=== PATIENT | female | born 1940 | race Caucasian/White ===

== ENCOUNTER 2024-01-24 17:43 | Observation (INO) | payer OTHER, SELFPAY ==
--- NOTE | 2024-01-24 10:53 | ED.GENMED ---
ED Provider Triage
<Brenda Castro PA-C - Last Filed: 01/24/24 10:56>
-
Patient seen by provider in Triage?: Seen in Triage
Attestation: A medical screening examination has been initiated by a qualified medical provider. Based on the assessment performed at this time, it has been determined that an emergent medical condition may exist and the patient has been informed
that further medical evaluation and possible additional diagnostic testing may be needed.
HPI: 83yoF here with atraumatic R knee pain x 6 months that has been worsening. She was unable to get out of bed this morning due to the pain.
GENERAL: Alert , in no apparent distress
EYE: No visual abnormalities.
NECK: Trachea midline
ENT: No visible abnormalities.
LUNGS: No acute respiratory distress
NEUROLOGICAL: Alert and oriented
SKIN: Skin intact. No visible changes.
MUSCULOSKELETAL: Moving extremities normally
PSYCH: Normal and appropriate interaction.
This is a medical evaluation conducted in person to initiate diagnostic evaluation and provide initial therapeutics. Please see further documentation by the treating clinician.
X-rays of R knee ordered.
History of Present Illness
<Brenda Castro PA-C - Last Filed: 01/24/24 10:56>
General
Chief Complaint: Musculo-Skeletal Complaint
Time Seen by Provider: 01/24/24 11:55
<Spencer Samuels PA-C - Last Filed: 01/24/24 15:42>
General
Source: patient
Exam Limitations: none
History of Present Illness
History of Present Illness:
83-year-old female presents from home where she lives by herself with severe right knee and leg pain. This progress over the last 3 to 4 days. She states she cannot bear weight secondary to the pain. She has been using Tylenol [id number]
without relief. No fevers. No known injury. She is accompanied by her son
Past History
<Brenda Castro PA-C - Last Filed: 01/24/24 10:56>
Past History
ED Past Medical History: Hypercholesterolemia
ED Past Surgical History: Orthopedic
Social History
Tobacco: Smoker
Alcohol: None
Drug: None
Personal:
Living: alone
Employment: Retired
Family History
Family History: Other
Phy Exam
<Spencer Samuels PA-C - Last Filed: 01/24/24 15:42>
Physical Exam
Physical Exam:
General: Well-appearing female no acute respiratory distress
Musculoskeletal exam: Right knee mildly diffusely tender soft tissue swelling noted without obvious intra-articular effusion. No overlying erythema range of motion is good the right thigh is nontender
Skin is warm without rash
Heart: Regular rate and rhythm no murmurs
Lungs: Clear no wheeze
Course
<Brenda Castro PA-C - Last Filed: 01/24/24 10:56>
Orders/Labs/Results
Orders:
Orders
01/24/24 10:55
CR Knee- Right 4 Or More View* Urgent
Comment:
Reason For Exam: atraumatic pain
01/24/24 12:07
Knee Immobilizer Right-Treatme ONCE
Prednisone [Deltasone] 50 mg PO NOW STA
01/24/24 12:26
CR Femur - Right Min 2 Vw Urgent
Comment:
Reason For Exam: pain in leg
01/24/24 12:37
PT Consult [Pt Eval And Treat] Urgent
Activity Level: Ambulate
01/24/24 14:16
Case Management Consult ONCE
Case Management Consult: Discharge Planning
01/24/24 14:34
Basic Metabolic Panel Urgent
Complete Blood Count/With Diff Urgent
01/24/24 15:39
Occupational Therapy Consult [Ot Eval And Treat] Urgent
Abnormal Lab Results
01/24/24
14:34
Absolute Neuts (auto) 6.8 H 10^3/uL
(1.4-6.5)
Neutrophils % 79.5 H %
(42.2-75.2)
Lymphocytes % 16.4 L %
(20.5-51.1)
Carbon Dioxide 21 L mmol/L
(22-30)
BUN 19 H mg/dl
(7-17)
Glucose 148 H mg/dl
(70-99)
01/24/24 14:34
01/24/24 14:34
Vital Signs
Initial and Last Documented VS:
Initial Vital Signs
Temp Pulse Resp BP Pulse Ox
98.4 F 73 16 132/82 96
01/24/24 10:54 01/24/24 10:54 01/24/24 10:54 01/24/24 10:54 01/24/24 10:54
Last Documented Vital Signs
Temp Pulse Resp BP Pulse Ox
98.4 F 73 20 132/82 96
01/24/24 10:54 01/24/24 10:54 01/24/24 12:28 01/24/24 10:54 01/24/24 10:54
<Spencer Samuels PA-C - Last Filed: 01/24/24 15:42>
Orders/Labs/Results
Orders:
Orders
01/24/24 10:55
CR Knee- Right 4 Or More View* Urgent
Comment:
Reason For Exam: atraumatic pain
01/24/24 12:07
Knee Immobilizer Right-Treatme ONCE
Prednisone [Deltasone] 50 mg PO NOW STA
01/24/24 12:26
CR Femur - Right Min 2 Vw Urgent
Comment:
Reason For Exam: pain in leg
01/24/24 12:37
PT Consult [Pt Eval And Treat] Urgent
Activity Level: Ambulate
01/24/24 14:16
Case Management Consult ONCE
Case Management Consult: Discharge Planning
01/24/24 14:34
Basic Metabolic Panel Urgent
Complete Blood Count/With Diff Urgent
01/24/24 15:39
Occupational Therapy Consult [Ot Eval And Treat] Urgent
Abnormal Lab Results
01/24/24
14:34
Absolute Neuts (auto) 6.8 H 10^3/uL
(1.4-6.5)
Neutrophils % 79.5 H %
(42.2-75.2)
Lymphocytes % 16.4 L %
(20.5-51.1)
Carbon Dioxide 21 L mmol/L
(22-30)
BUN 19 H mg/dl
(7-17)
Glucose 148 H mg/dl
(70-99)
01/24/24 14:34
01/24/24 14:34
Vital Signs
Initial and Last Documented VS:
Initial Vital Signs
Temp Pulse Resp BP Pulse Ox
98.4 F 73 16 132/82 96
01/24/24 10:54 01/24/24 10:54 01/24/24 10:54 01/24/24 10:54 01/24/24 10:54
Last Documented Vital Signs
Temp Pulse Resp BP Pulse Ox
98.4 F 73 20 132/82 96
01/24/24 10:54 01/24/24 10:54 01/24/24 12:28 01/24/24 10:54 01/24/24 10:54
Markuslt;Spencer Samuels PA-C - Last Filed: 01/24/24 15:42>
MDM/Problems Addressed
Differential Diagnosis Includes:
Right knee and leg pain. No swelling of the leg to suggest DVT. No erythema to suggest septic arthritis. X-rays of the right knee show mild degenerative changes. Attempted to place patient in knee immobilizer and treat with prednisone. She was
unable to bear any weight on the right leg. Patient and family expressed concern about potential for going home.
<Spencer Samuels PA-C - Last Filed: 01/24/24 15:42>
*Critical Care Note
Total Time (30-74mins, 75-104mins- exclusive of procedures): Not Applicable
<Spencer Samuels PA-C - Last Filed: 01/24/24 15:42>
Update Note
Update Note:
Right knee and femur x-rays were negative. Evaluated by physical therapy. Patient unable to safely ambulate per their evaluation. They recommended SNF placement. Case management involved. They have beds but are waiting for authorization which
will not happen tonight. Will admit for further work with physical therapy and case management
ED Attending Note
<Brenda Castro PA-C - Last Filed: 01/24/24 10:56>
-
Portions of this chart may have been created with voice recognition software.� Occasional wrong word or��sound alike� substitutions may have occurred due to the inherent limitations of voice recognition software.
Discharge Plan
Departure
Patient Disposition: Admit
Date of Disposition: 01/24/24
Time of Disposition: 15:42
Admit to: Med/Surg
Presentation/result/management discussed w/ accepting MD/DO: Hospitalist
Discharge Problem:
Pain in right leg, Ambulatory dysfunction
Prescriptions:
No Action
atorvastatin 20 MG tablet
20 mg PO DAILY
cyanocobalamin (vitamin B-12) 1,000 MCG tablet
1,000 mcg PO DAILY
alum-mag hydroxide-simeth [Mag-Al Plus] 30 ML suspension
30 ml PO Q4HPRN PRN (Reason: INDIGESTION) 0RF
ascorbic acid (vitamin C) [Vitamin C] 1,000 mg Tablet
1,000 mg PO DAILY
sertraline 50 mg Tablet
75 mg PO DAILY
cholecalciferol (vitamin D3) 25 mcg (1,000 unit) Tablet
25 mcg PO DAILY
melatonin 10 mg Tablet
10 mg PO HS PRN (Reason: sleep)
amoxicillin-pot clavulanate 875-125 mg tablet
1 tab PO BID Qty: 4 0RF
Rx Instructions:
2 days
polyethylene glycol 3350 [HealthyLax] 17 gram Powder In Packet
17 g PO DAILY Qty: 1 0RF
nicotine 21 mg/24 hr Patch 24 Hour
21 mg transdermal DAILY Qty: 1 0RF
metoprolol succinate 25 mg Tablet Extended Release 24 Hr
25 mg PO BID Qty: 30 0RF
Rx Instructions:
New medication for atrial tachycardia
Referrals:
Diaz Linda MD [Family Provider] -
Interventions
Interventions:
*Risk Screen - Suicide Last Done: 01/24/24 10:54
*General Assessment Last Done: 01/24/24 10:54
*Neglect/Abuse Screening Last Done: 01/24/24 10:54
*ED COVID-19 Vaccine History Last Done: 01/24/24 11:39
ED-Musculoskeletal Assessment Last Done: 01/24/24 11:39
Discharge Date and Time
Print Language: DIVEHI
[2024-01-24 10:54] VITALS: BP 132/82
[2024-01-24] MEDS: DELTASONE 50 MG PO (12:11)
[2024-01-24 14:42] LABS: % Basophils 0.5 % (0-2); % Eosinophils 0.6 % (0-6); % Immature Granulocytes 0.5 % (0-0.5); % Lymphocytes 16.4 % (20.5-51.1); % Monocytes 2.5 % (1.7-9.3); % Neutrophils 79.5 % (42.2-75.2); Absolute Eosinophils 0.1 10^3/uL (0-0.7); Absolute Lymphocytes 1.4 10^3/uL (1.2-3.4); Absolute Monocytes 0.2 10^3/uL (0.1-0.6); Absolute Neutrophils 6.8 10^3/uL (1.4-6.5); Hematocrit 44.1 % (37.0-47.0); Hemoglobin 14.6 g/dL (12.0-16.0); Mean Corp Hgb Conc. 33.1 g/dL (33.0-37.0); Mean Corpuscular Hgb 30.9 pg (27.0-31.0); Mean Corpuscular Volume 93.2 fL (81.0-99.0); Mean Platelet Volume 9.2 fL (7.4-10.4); Nucleated Red Blood Cells % 0 %; Platelet Count 210 10^3/uL (130-400); Red Blood Cell Count 4.73 10^6/uL (4.20-5.40); Red Cell Dist. Width 13.3 % (11.5-14.5); White Blood Cell Count 8.6 10^3/uL (4.8-10.8)
[2024-01-24 15:00] LABS: Blood Urea Nitrogen 19 mg/dl (7-17); Calcium 9.8 mg/dl (8.4-10.2); Carbon Dioxide 21 mmol/L (22-30); Chloride 104 mmol/L (98-107); Glucose 148 mg/dl (70-99); Sodium 140 mmol/L (135-145); eGFR > 60.00
--- NOTE | 2024-01-24 15:49 | CM ---
ED CM consulted for SNF placement
Meeting with pt and son/ Ty
Pt resides alone in a split level house 5+1+1 to enter home
5 steps up to kitchen and sleeping area
Pt notes independence with WW throughout home
She showers independently but under supervision due to falls risks
Notes no current VN and denies financial insecurities
SNF recommended by PT
Referral to [facility]
Will need [employer] auth
Requested OT order for auth purposes
Discharge Disposition- [facility] pending auth
[2024-01-24 16:26] VITALS: BP 156/84; PULSE 63; O2SAT 97
[2024-01-24 16:29] VITALS: BP 146/79
--- NOTE | 2024-01-24 16:42 | HPS.HSE ---
Family Physician
-
Family Physician: Diaz Linda MD
Chief Complaint
-
Right knee pain inability to ambulate
History of Present Illness
83-year-old female from home, where she lives alone complaining of atraumatic right knee pain x 6 months that is getting progressively worse she was unable to get out of bed this morning due to the pain. Her son is helping with past medical history
due to patient's short-term memory impairment. She has been upstairs for the past 4 days in her bed close to her bathroom as she is unable to get down the steps. She reports she cannot bear weight due to the pain. She will report improvement of
pain with Tylenol every 6 hours, although she has not been able to get out of bed and walk according to her son. She has short-term memory impairment, but does not recall she lives in a split-level home with bedrooms upstairs, does not recall she
has been upstairs for the last 4 days. She has some generalized swelling with mild joint effusion to the right and left knee. Right knee is greater than left. There is no erythema or warmth. No history of gout. Her x-ray today of the right knee
shows osteopenia no acute abnormalities She denies fever, chills, joint effusion, sore throat, headache, chest pain, palpitations, shortness breath, cough, abdominal pain, nausea, vomiting, diarrhea, urinary symptoms
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
inversions
Medical History
Past Medical History
Past Medical History: Reports Other
Additional Past Medical History:
Dementia with short-term memory impairment started approximately 2020 per son Ty Montes
Hyperlipidemia
Anxiety
Paroxysmal atrial tachycardia
Recurrent falls
Hx of rhabdomyolysis 2020
Bilateral hip fractures with bilateral hip replacements by [facility]
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
Past Surgical History: Reports Other
Additional Past Surgical History:
Bilateral hip replacement [facility] Dr. Sanderson
Social History
Tobacco: Smoker (1 ppd)
Alcohol: Other (Former daily gin and tonic or scotch and water from age [age])
Drug: None
Personal: Single
Living: Alone (Split-level home 5 steps up to bedrooms and bathroom)
Employment: Retired
Family History
Family History: Not pertinent
Allergies / Home Medications
Allergies reflects when Allergies were last updated in [employer].
Home Medications with original date entered in [employer]
Allergy/Medication List:
Allergies
Allergy/AdvReac Type Severity Reaction Status Date / Time
No Known Allergies Allergy Verified 01/24/24 10:54
Home Medications
ascorbic acid (vitamin C) 1,000 mg tablet (Vitamin C) 1,000 mg PO DAILY Supplement 02/27/23
cholecalciferol (vitamin D3) 25 mcg (1,000 unit) tablet 25 mcg PO DAILY Supplement 02/27/23
acetaminophen 500 mg tablet (Tylenol Extra Strength) 1,000 mg PO QID 01/24/24
atorvastatin 20 mg tablet (Lipitor) 20 mg PO QPM 01/24/24
metoprolol succinate 25 mg tablet,extended release 24 hr 25 mg PO DAILY 01/24/24
potassium chloride 20 mEq tablet,extended release 20 meq PO DAILY 01/24/24
therapeutic multivitamin 1 tab PO DAILY 01/24/24
Review of Systems
-
History Source: Patient and Family (Son Ty Montes, POA at bedside)
Constitutional: Denies Fever, Fatigue or Chills
EENT: Denies Sore Throat or Runny Nose
Respiratory: Denies Cough or Trouble Breathing
Cardiac: Denies Chest Pain, Diaphoresis, Palpitations or Syncope
Abdomen/GI: Denies Abdominal Pain, Nausea, Vomiting, Diarrhea, Constipated, Bloody Stools or Black Stools
: Denies Dysuria, Frequency, Flank Pain, Incontinence, Difficulty Voiding or Urgency
Musculoskeletal: Reports Joint Pain (Right knee pain, no surrounding erythema) and Joint Swelling (Mild effusion right and left knee); Denies Edema
Skin: Denies Itching or Rash
Neurological: Reports Weakness (Unable to bear weight on right knee secondary to pain per patient); Denies Dizzy or Headache
Endocrine: Reports No Symptoms
Hematologic/Lymphatic: Reports No Symptoms
Psych: Reports Calm
Physical Exam
Vital Signs
Vital Signs
Temp Pulse Resp BP Pulse Ox
98.4 F 64 18 146/79 98
01/24/24 10:54 01/24/24 16:29 01/24/24 16:29 01/24/24 16:29 01/24/24 16:29
Physical Exam
General: Comfortable and Conversant; No Fever or Chills
HEENT: NormoCephalic, Anicteric, Moist mucous membranes, PERRLA, [place] Conjunctivae, No Ptosis and Neck Nontender
Respiratory: Clear; No Wheezes, Rales or Rhonchi
Cardiac: S1/S2 and Regular Rhythm; No Murmur, Rub, Gallop or Peripheral Edema
Breast: Deferred by me
GI: Soft, Non Tender, Non Distended, Normal Bowel Sounds and No Hepatosplenomegaly
Rectal: Deferred by Provider
Genito-urinary: Deferred by me
Musculoskeletal: No Clubbing, No Cyanosis, Edema, Left Lower Extremity (Mild left knee chronic swelling with mild effusions history of osteopenia) and Edema, Right Lower Extremity (Swelling to right knee with mild effusions no surrounding erythema
or warmth, unable to stand due to pain at end of femur beginning of tib-fib x 4 days); No Edema, Left Upper Extremity or Edema, Right Upper Extremity
Skin: Warm and Dry; No Rash
Neuro: Awake, Alert, Oriented (To name, son, place but not that she lives in a two-story home unaware she has been upstairs for the past 4 days-history of short-term dementia), Cranial Nerves Intact and No Sensory Deficits; No Slurred Speech, Facial
Droop, Tremors or Sedated
Psych: Calm
Laboratory Results
-
01/24/24 14:34
01/24/24 14:34
Laboratory Results
Total Bilirubin Cancelled 01/24/24 14:34
AST Cancelled 01/24/24 14:34
ALT Cancelled 01/24/24 14:34
Alkaline Phosphatase Cancelled 01/24/24 14:34
Impression/Plan
-
Impression/plan:
Observation MedSurg
#Acute on chronic knee pain Atraumatic likely Arthritis vs Other inflammatory condition
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
Prednisone 50 mg given in ER-will hold further
-Consult PT/OT/case management for SNF rehab patient has been to [facility] last year
-Continue Tylenol 650 mg 4 times daily scheduled
-Continue vitamin D3 daily
-Motrin 600 mg 3 times daily scheduled(will give x 5 days) due to patient's dementia she is unable to advocate appropriate pain scale and pain in general
- add pepcid 20 mg bid gi protection while on NSAIDS
-Check ESR, CRP
-PT/OT/case management consult
#Hx bilateral hip replacements
-Were done by [facility]
#Dementia with short-term memory impairment per son Ty at bedside
-Patient oriented to name and son but not two-story home she lives in, recent events
#Hx recurrent falls 2020
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
#Active smoker
Cessation advised
#Paroxysmal atrial tachycardia
-Continue metoprolol succinate 25 mg daily
#Hyperlipidemia
-Continue Lipitor 20 mg every afternoon
#Anxiety hx
-No reported medication
DVT prophylaxis
Subcu heparin
DNR per patient's son Ty KATIE Montes
--- NOTE | 2024-01-24 16:49 | CM ---
Availity auth initiated.
Pended reference #[id number].
Clinicals uploaded via [employer].
Patient accepted at [facility] pending insurance authorization.
--- NOTE | 2024-01-24 17:42 | W.PN.UPDATE ---
Update Note
Progress Note Update
This is an addendum to the H&P written by Lauryn Logan on 01/24/2024. Patient seen and examined independently with [employer]
83-year-old female with past medical history of paroxysmal atrial tachycardia, recurrent falls, hyperlipidemia, anxiety, genu valgus of bilateral knees, dementia with short-term memory loss presenting with acute on chronic right knee pain with
inability to bear weight over the past 2 days. She has bilateral knee pain worse on the right side. On examination knees are swollen with trace effusions but without redness or warmth.
X-rays showed no acute abnormalities. She was given prednisone 50 mg in the emergency room. Examination not consistent with inflammatory arthritis or gout. Examination not consistent with ligament or meniscal injury although she is tender on the
lateral right side of the patella. Pain likely secondary to osteoarthritis. Start ibuprofen. Check ESR/CRP. PT/OT. Consider outpatient MRI if no further improvement.
[2024-01-24 17:55] VITALS: BMI 25.6
[2024-01-24 18:40] LABS: Erythrocyte Sed Rate 12 mm/hour (0-20)
--- NOTE | 2024-01-24 19:30 | PTCARENOTE ---
Patient arrived to unit via stretcher accompanied by ED PCT. Patient poor historian, without RLE immobilizer on at this time, and unable to provide staff with accurate information on ambulation status. Transferred from stretcher to bed without
difficulty - patient refuses to wear immobilizer, education provided at this time. Nursing assessment completed and as documented, bed alarmed for safety, instructed use of call mistry and within reach. Care ongoing.
[2024-01-24 19:57] VITALS: BMI 24.4
[2024-01-24] MEDS: PEPCID 20 MG PO (20:39)
[2024-01-24] MEDS: HEPARIN 5000 UNITS SC (20:40)
[2024-01-24] MEDS: MOTRIN 600 MG PO (20:40)
[2024-01-24 22:00] VITALS: BP 153/72
[2024-01-24 23:00] VITALS: BP 157/101
[2024-01-25 07:30] VITALS: BP 160/89
[2024-01-25 09:08] LABS: % Basophils 0.4 % (0-2); % Eosinophils 1.2 % (0-6); % Immature Granulocytes 0.2 % (0-0.5); % Lymphocytes 28.1 % (20.5-51.1); % Neutrophils 62.1 % (42.2-75.2); Absolute Eosinophils 0.1 10^3/uL (0-0.7); Absolute Lymphocytes 2.5 10^3/uL (1.2-3.4); Absolute Monocytes 0.7 10^3/uL (0.1-0.6); Absolute Neutrophils 5.5 10^3/uL (1.4-6.5); Hematocrit 39.4 % (37.0-47.0); Hemoglobin 13.2 g/dL (12.0-16.0); Mean Corp Hgb Conc. 33.5 g/dL (33.0-37.0); Mean Corpuscular Hgb 31.6 pg (27.0-31.0); Mean Corpuscular Volume 94.3 fL (81.0-99.0); Mean Platelet Volume 9.5 fL (7.4-10.4); Nucleated Red Blood Cells % 0 %; Platelet Count 199 10^3/uL (130-400); Red Blood Cell Count 4.18 10^6/uL (4.20-5.40); Red Cell Dist. Width 13.4 % (11.5-14.5); White Blood Cell Count 8.9 10^3/uL (4.8-10.8)
[2024-01-25] MEDS: TYLENOL 650 MG PO (09:53)
[2024-01-25] MEDS: VITAMIN D3 (cholecalciferol) 25 MCG PO (09:53)
[2024-01-25] MEDS: THERAGRAN 1 TABLET PO (09:54)
[2024-01-25] MEDS: TOPROL XL 25 MG PO (09:54)
[2024-01-25] MEDS: VITAMIN C 1000 MG PO (09:54)
[2024-01-25] MEDS: HEPARIN 5000 UNITS SC ×2 (09:57→20:47)
[2024-01-25] MEDS: MOTRIN PO (11:07)
[2024-01-25 11:23] LABS: Blood Urea Nitrogen 21 mg/dl (7-17); Calcium 9.3 mg/dl (8.4-10.2); Carbon Dioxide 28 mmol/L (22-30); Chloride 103 mmol/L (98-107); Estimated Creatinine Clearance 43 ml/min; Glucose 87 mg/dl (70-99); Potassium 3.9 mmol/L (3.5-5.1); Sodium 142 mmol/L (135-145); eGFR > 60.00
--- NOTE | 2024-01-25 11:43 | W.PN.HOSP.TC ---
Today's Communication/Plan
-
await placement
ice pack, tylenol
celebrex
Assessment / Plan
Assessment / Plan
General: Comfortable and Conversant; No Fever or Chills
HEENT: NormoCephalic, Anicteric, Moist mucous membranes, [place] Conjunctivae, No Ptosis and Neck Nontender
Respiratory: Clear; No Wheezes, Rales or Rhonchi
Cardiac: S1/S2 and Regular Rhythm; No Murmur, Rub, Gallop or Peripheral Edema
Breast: Deferred by me
GI: Soft, Non Tender, Non Distended, Normal Bowel Sounds and No Hepatosplenomegaly
Rectal: Deferred by Provider
Genito-urinary: Deferred by me
Musculoskeletal: No Clubbing, No Cyanosis, Edema, Left Lower Extremity (Mild left knee chronic swelling ) and Edema, Right Lower Extremity (Swelling to right knee with mild effusions no surrounding erythema or warmth, unable to stand due to pain at
end of femur beginning of tib-fib x 4 days); No Edema, Left Upper Extremity or Edema, Right Upper Extremity no edema
Skin: Warm and Dry; No Rash
Neuro: No Slurred Speech, Facial Droop, Tremors or Sedated
Psych: Calm
#Acute on chronic knee pain Atraumatic likely Arthritis vs Other inflammatory condition
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
Prednisone 50 mg given in ER-will hold further
-Consult PT/OT/case management for SNF rehab patient has been to [facility] last year
-Continue Tylenol 650 mg 4 times daily scheduled
-Continue vitamin D3 daily
-celebrex bid
-add pepcid 20 mg bid gi protection while on NSAIDS
-Check ESR, CRP normal.
-Xray R knee negative for fracture.
-Xray R hip Right hip replacement in satisfactory position with no evidence of fracture or loosening
-PT/OT/case management consult
#Hx bilateral hip replacements
-Were done by [facility]
-f/u OP
#Dementia with short-term memory impairment per son Ty at bedside
-Patient oriented to name and son but not two-story home she lives in, recent events
#Hx recurrent falls 2020
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
#Active smoker
Cessation advised
#Paroxysmal atrial tachycardia
-Continue metoprolol succinate 25 mg daily
#Hyperlipidemia
-Continue Lipitor 20 mg every afternoon
#Anxiety hx
-No reported medication
DVT prophylaxis
Subcu heparin
DNR per patient's son Ty Montes, POA
PT/OT-SNF. Await auth. CM aware.
Anticipated Discharge: Today
Subjective/Interval History
-
Date of Service: January 25, 2024
states of R knee pain with activity
Objective Data
-
Labs:
Laboratory Results
01/25/24
08:43
WBC 8.9
Hgb 13.2
Hct 39.4
Plt Count 199
Sodium 142
Potassium 3.9
Chloride 103
Carbon Dioxide 28
BUN 21 H
Creatinine 0.9
Glucose 87
Calcium 9.3
Vital Signs:
Vital Signs
Temp Pulse Resp BP Pulse Ox
97.6 F 60 16 160/89 99
01/25/24 07:30 01/25/24 09:54 01/25/24 07:30 01/25/24 07:30 01/25/24 07:30
I&O
01/24/24 01/25/24 01/26/24
06:59 06:59 06:59
Output Total 100 / 100
Balance -100 / -100
Data Reviewed
-
Total Time Spent with Patient (in minutes): 51
[2024-01-25 15:16] VITALS: BP 124/63
--- NOTE | 2024-01-25 15:17 | CM ---
[facility] [id number].
Call placed to [facility] to determine bed availability; they do have a bed available for admission pending final authorization.
PLAN: CM to continue to follow to coordinate transport to [facility] once SNF authorization has been approved.
[2024-01-25] MEDS: CELEBREX 100 MG PO (20:47)
[2024-01-25] MEDS: PEPCID 20 MG PO (20:47)
[2024-01-25 23:55] VITALS: BP 121/59
[2024-01-26 07:35] VITALS: BP 153/78
[2024-01-26 09:56] VITALS: BP 143/79; PULSE 65
[2024-01-26] MEDS: CELEBREX 100 MG PO ×2 (09:59→20:03)
[2024-01-26] MEDS: HEPARIN 5000 UNITS SC ×2 (09:59→20:03)
[2024-01-26] MEDS: VITAMIN C 1000 MG PO (10:00)
[2024-01-26] MEDS: TOPROL XL 25 MG PO (10:00)
[2024-01-26] MEDS: VITAMIN D3 (cholecalciferol) 25 MCG PO (10:00)
[2024-01-26] MEDS: THERAGRAN 1 TABLET PO (10:00)
--- NOTE | 2024-01-26 11:10 | W.PN.HOSP.TC ---
Today's Communication/Plan
-
pain control
Ice pack
PT/OT/oob as tolerated
Assessment / Plan
Assessment / Plan
General: Comfortable and Conversant; No Fever or Chills
HEENT: NormoCephalic, Anicteric, Moist mucous membranes, [place] Conjunctivae, No Ptosis and Neck Nontender
Respiratory: Clear; No Wheezes, Rales or Rhonchi
Cardiac: S1/S2 and Regular Rhythm; No Murmur, Rub, Gallop or Peripheral Edema
Breast: Deferred by me
GI: Soft, Non Tender, Non Distended, Normal Bowel Sounds and No Hepatosplenomegaly
Rectal: Deferred by Provider
Genito-urinary: Deferred by me
Musculoskeletal: No Clubbing, No Cyanosis, Edema, Left Lower Extremity (Mild left knee chronic swelling ) and Edema, Right Lower Extremity mild TTP. No swelling. No Edema, Left Upper Extremity or Edema, Right Upper Extremity no edema
Skin: Warm and Dry; No Rash
Neuro: No Slurred Speech, Facial Droop, Tremors or Sedated
Psych: Calm
#Acute on chronic knee pain Atraumatic likely Arthritis vs Other inflammatory condition
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
-Consult PT/OT/case management for SNF rehab patient has been to [facility] last year
-Continue Tylenol 650 mg 4 times daily scheduled
-Continue vitamin D3 daily
-celebrex bid
-add pepcid 20 mg bid gi protection while on NSAIDS
-Check ESR, CRP normal.
-Xray R knee negative for fracture.
-Xray R hip Right hip replacement in satisfactory position with no evidence of fracture or loosening
-PT/OT/case management consult
#Hx bilateral hip replacements
-Were done by [facility]
-f/u OP
#Dementia with short-term memory impairment per son Ty at bedside
-Patient oriented to name and son but not two-story home she lives in, recent events
#Hx recurrent falls 2020
#Hx rhabdomyolysis after a fall 2020
#Active smoker
Cessation advised
#Paroxysmal atrial tachycardia
-Continue metoprolol succinate 25 mg daily
#Hyperlipidemia
-Continue Lipitor 20 mg every afternoon
#Anxiety hx
-No reported medication
DVT prophylaxis
Subcu heparin
DNR
PT/OT-SNF. Await auth. CM aware.
Anticipated Discharge: Today
Subjective/Interval History
-
Date of Service: January 26, 2024
Intermittent R knee pain
tolerating diet
Objective Data
-
Vital Signs:
Vital Signs
Temp Pulse Resp BP Pulse Ox
98.3 F 54 18 153/78 93
01/26/24 07:35 01/26/24 10:00 01/26/24 07:35 01/26/24 10:00 01/26/24 09:42
I&O
01/25/24 01/26/24 01/27/24
06:59 06:59 06:59
Intake Total 840 / 840
Output Total 350 / 350
Balance 490 / 490
[2024-01-26 15:24] VITALS: BP 138/81
--- NOTE | 2024-01-26 16:19 | PTCARENOTE ---
Pt AAO to self/place, occ forgetful to date. Re-orients easily; pt pleasant and cooperative. GOLDEN; OOB to chair/BSC with assistance/walker, james well. Pt c/o Rt knee discomfort with OOB activity; refuses offers of pain meds/prn ice pack; on
Celebrex PO. VSS. On room air- pulse ox 97%, no SOB noted. Abd large, soft, james PO well. Incont urine; occ voids on BSC. Resting in bed at present. Will continue to monitor.
--- NOTE | 2024-01-26 16:27 | CM ---
LORETTA continues to seek authorization approval from [facility] which was submitted 01/26/2024. LORETTA sent an email and voicemail to the [employer] reviewer, however no response received.
CM to continue follow up regarding transfer to [facility] at discharge.
--- NOTE | 2024-01-26 16:34 | CM ---
[facility] skilled auth pending.
Left VM with La Nena Castellanos contact at [facility],
Sent excalation email to [facility] team.
Await skilled rehab determination.
[2024-01-26] MEDS: PEPCID 20 MG PO (20:03)
[2024-01-26] MEDS: TYLENOL 650 MG PO (20:03)
[2024-01-26 23:29] VITALS: BP 140/82
[2024-01-27 07:30] VITALS: BP 168/84
--- NOTE | 2024-01-27 08:25 | CM ---
Left VM for Alma Rosa/Katarina mclain pending auth.
[2024-01-27] MEDS: HEPARIN 5000 UNITS SC (08:42)
[2024-01-27] MEDS: CELEBREX 100 MG PO (08:43)
[2024-01-27] MEDS: THERAGRAN 1 TABLET PO (08:43)
[2024-01-27] MEDS: VITAMIN D3 (cholecalciferol) 25 MCG PO (08:43)
[2024-01-27] MEDS: VITAMIN C 1000 MG PO (08:43)
[2024-01-27] MEDS: TOPROL XL 25 MG PO (08:44)
--- NOTE | 2024-01-27 09:41 | CM ---
Katarina authorization [id number] received this AM for transfer to [facility]. Level 1 approved 01/26-02/02/2024 with next review date 02/03/2024 to [phone].
Information relayed to [facility]. Call placed to Iris's son to make him aware of plan for transfer today. W/C van transport to be arranged and will notify son with time scheduled and he will call to make payment.
Plan: Transfer to [facility] today via w/c van transport.
[facility] report: [phone]
[facility] fax: [phone]
--- NOTE | 2024-01-27 11:40 | CM ---
Addendum entered by Judy Barrera 01/27/24 11:42:
IMM reviewed via telephone with Iris's son. Copy placed in chart and form emailed to Ty.
Original Note:
W/C van transport arranged for 1:30pm today. Ty, pt's son, notified of same and provided with phone number to call for payment.
[facility] Joiner notified of transport time.
Plan: Transfer to [facility] today via w/c van transport.
[facility] report: [phone]
[facility] fax: [phone]
--- NOTE | 2024-01-27 11:43 | W.PN.HOSP.TC ---
Today's Communication/Plan
-
Pain control
ice
OP ortho f/u
Assessment / Plan
Assessment / Plan
General: Comfortable and Conversant; No Fever or Chills
HEENT: NormoCephalic, Anicteric, Moist mucous membranes, [place] Conjunctivae, No Ptosis and Neck Nontender
Respiratory: Clear; No Wheezes, Rales or Rhonchi
Cardiac: S1/S2 and Regular Rhythm; No Murmur, Rub, Gallop or Peripheral Edema
Breast: Deferred by me
GI: Soft, Non Tender, Non Distended, Normal Bowel Sounds and No Hepatosplenomegaly
Rectal: Deferred by Provider
Genito-urinary: Deferred by me
Musculoskeletal: No Clubbing, No Cyanosis, Edema, Left Lower Extremity (Mild left knee chronic swelling ) and Edema, Right Lower Extremity mild point tenderness lateral patella. Able to flex/extend knee.
Skin: Warm and Dry; No Rash
Neuro: No Slurred Speech, Facial Droop, Tremors or Sedated
Psych: Calm
#Acute on chronic knee pain Atraumatic likely Arthritis
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
-Consult PT/OT/case management for SNF rehab
-Continue Tylenol 650 mg
-Continue vitamin D3 daily
-celebrex bid for few more days. Topical bengay.
-add pepcid 20 mg bid gi protection while on NSAIDS
-Check ESR, CRP normal.
-Xray R knee negative for fracture.
-Xray R hip Right hip replacement in satisfactory position with no evidence of fracture or loosening
-PT/OT/case management consult
-Recommends OP ortho f/u with [facility]
#Hx bilateral hip replacements
-Were done by [facility]
-f/u OP
#Dementia with short-term memory impairment per son Ty at bedside
-Patient oriented to name and son but not two-story home she lives in, recent events
#Hx recurrent falls 2020
#Hx rhabdomyolysis after a fall 2020
#Active smoker
Cessation advised
#Paroxysmal atrial tachycardia
-Continue metoprolol succinate 25 mg daily
#Hyperlipidemia
-Continue Lipitor 20 mg every afternoon
#Anxiety hx
-No reported medication
DVT prophylaxis-Subcu heparin
DNR
update son over the phone in details.
PT/OT-SNF. Await auth. CM aware.
More than 30 minutes spent in discharge including
Final examination of the patient
Summarizing hospital stay
Instructions for continuing care to all relevant caregivers
Preparation of discharge records, prescriptions, and referral forms
Total time spent (in minutes): 45
Anticipated Discharge: Today
Subjective/Interval History
-
Date of Service: January 27, 2024
resting in bed
tolerating diet
no resting knee pain
Objective Data
-
Vital Signs:
Vital Signs
Temp Pulse Resp BP Pulse Ox
98 F 53 18 168/84 97
01/27/24 07:30 01/27/24 07:30 01/27/24 07:30 01/27/24 07:30 01/27/24 07:30
I&O
01/26/24 01/27/24 01/28/24
06:59 06:59 06:59
Intake Total 840 / 840 720 / 720
Output Total 350 / 350 500 / 500
Balance 490 / 490 220 / 220
--- NOTE | 2024-01-27 13:57 | W.DCSUMMARY ---
Discharge Summary
Discharge Data
Date of Admission: 01/24/24
Date of Discharge: 01/27/24
-
Pending Results: No
Hospital Course
83 female past medical history of recurrent falls, active smoker, atrial tachycardia, hyperlipidemia, bilateral hip replacement presenting from home with complaint of severe right knee pain. Right knee pain has been ongoing for the past 6 months.
Patient underwent x-ray of the right hip without any acute pathology or fracture. X-ray of the right knee also without any fractures. Patient was able to extend and flex right knee without any difficulty. No severe significant swelling or
erythema was noted on the right knee. No Aviles's cyst noted on bilateral knees. Patient was started on Tylenol and NSAIDs. Ice pack was recommended. ESR and CRP were checked and found to be normal. Patient was recommended to follow-up
outpatient with [facility] orthopedic. Patient was eval by physical and Occupational Therapy who recommended SNF. Patient will be discharged to long term facility. Patient course was discussed with patient son over the phone in detail and
agreed discharge to rehab.
Discharge Plan
-
Patient Disposition: Jail/SNF
Discharge Diagnosis/Procedures: Acute on chronic knee pain Atraumatic likely Arthritis
Chronic genu valgus of the knees with bilateral left greater than right foot inversions
Condition: Fair
Diet: Low Cholesterol
Activity: With assistance and As tolerated
Driving Restrictions: Not until seen by your Dr
Referrals:
Diaz Linda MD [Family Provider] - in less than 1 week
Luis Eduardo Hilario MD [Active] - in one to two weeks
Prescriptions:
New
celecoxib 100 mg Capsule
100 mg PO BID Qty: 7 0RF
Bengay Ultra Strength 4-30-10 % cream
1 applic topical BID Qty: 57 0RF
Rx Instructions:
Apply to Right knee
Continued
ascorbic acid (vitamin C) [Vitamin C] 1,000 mg Tablet
1,000 mg PO DAILY
cholecalciferol (vitamin D3) 25 mcg (1,000 unit) Tablet
25 mcg PO DAILY
atorvastatin [Lipitor] 20 mg Tablet
20 mg PO QPM
metoprolol succinate 25 mg tablet extended release 24 hr
25 mg PO DAILY
therapeutic multivitamin Tablet
1 tab PO DAILY
acetaminophen [Tylenol Extra Strength] 500 mg Tablet
1,000 mg PO QID
potassium chloride 20 mEq Tablet Extended Release
20 meq PO DAILY
Discharge Orders:
Discharge Patient (As Directed); Ordered 01/27/24
Ordered By: Georgi Caban
Discharge Date and Time
Print Language: BRUNEIAN
== END 2024-01-27 14:05 ==
LOC: 4 EAST ACU 17:43
PROVIDERS: Clinical Nurse Specialist Family Health; Physician Assistant; ADMITTING PHYSICIAN Hospitalist; ATTENDING PHYSICIAN Hospitalist; EMERGENCY PHYSICIAN Emergency Medicine; FAMILY PHYSICIAN Internal Medicine
DX: M25.561 Pain in right knee (principal); G89.29 Other chronic pain; M25.462 Effusion, left knee; M25.461 Effusion, right knee; E78.00 Pure hypercholesterolemia, unspecified; F17.200 Nicotine dependence, unspecified, uncomplicated; R26.2 Difficulty in walking, not elsewhere classified; M85.861 Other specified disorders of bone density and structure, right lower leg; I70.90 Unspecified atherosclerosis; I47.19 Other supraventricular tachycardia; F03.94 Unspecified dementia, unspecified severity, with anxiety; Z75.1 Person awaiting admission to adequate facility elsewhere; Z60.2 Problems related to living alone; Z96.643 Presence of artificial hip joint, bilateral; Z66 Do not resuscitate
CPT/HCPCS: 73552; 73564; 80048; 85025; 85652; 86140; 97535; 99285; G0378